=== PATIENT | female | born 1970 | race Caucasian/White ===

== ENCOUNTER 2018-04-29 12:25 | Inpatient (IN) | payer BC ==
[~2018-04-29] VITALS: Ht 170.2 cm; Wt 99.1 kg
[2018-04-29 12:33] VITALS: Ht 170.2 cm; Wt 99.1 kg
[2018-04-29 13:14] LABS: BASOPHIL % 0.6 % (0-2); PLATELET COUNT 215 x10^3mcL (130-400); RED CELL DISTRIBUTION WIDTH 14.2 % (11.5-14.5)
[2018-04-29 13:31] LABS: CALCIUM 9.9 mg/dL (8.5-10.1); CARBON DIOXIDE 28.1 mmol/L (21-32); CHLORIDE SERUM 104 mmol/L (98-107); CREATININE SERUM 0.9 mg/dL (0.6-1.0); GFR1 > 60 mL/min; GLUCOSE SERUM 146 mg/dL (74-106); POTASSIUM SERUM 3.7 mmol/L (3.5-5.1); SODIUM SERUM 141 mmol/L (136-145)
[2018-04-29] MEDS ORDERED: VENLAFAXINE HYD75 MG PO (13:45)
[2018-04-29] MEDS ORDERED: SYNTHROID0.05 MG PO (13:46)
[2018-04-29] MEDS ORDERED: NORCO1 TA2 PO (13:46)
[2018-04-29] MEDS ORDERED: TRAMADOL HCL50 MG PO (13:47)
[2018-04-29 15:20] VITALS: BP 112/77
[2018-04-29 15:42] LABS: MAGNESIUM 1.9 mg/dL (1.8-2.4); PHOSPHOROUS 3.5 mg/dL (2.5-4.9)
[2018-04-29 15:44] LABS: CHOLESTEROL/HDL RATIO 3.5
[2018-04-29 15:48] LABS: T3 TOTAL 1.12 ng/mL
[2018-04-29 15:49] LABS: FREE T4 0.84 ng/dL (0.76-1.46); FREE THYROXINE INDEX 2.4 ug/dL (1.4-4.5); T4(THYROXINE) 7.7 ug/dL (4.7-13.3)
[2018-04-29 16:27] LABS: UA SPECIFIC GRAVITY <=1.005 (1.005-1.035); microscopic required? YES; urine erythrocyte NEGATIVE (NEGATIVE)
[2018-04-29 16:38] LABS: AMPHETAMINE QUAL UR NONE DETECTED (See below)
[2018-04-29 20:34] VITALS: BP 120/83
[2018-04-30 05:40] VITALS: BP 107/71
[2018-04-30] MEDS ORDERED: LEVOTHYROXIN0.088 M1 PO (06:20)
[2018-04-30] MEDS ORDERED: LEVOTHYROXINE PO (06:24)
[2018-04-30 06:47] LABS: BASOPHIL % 0.5 % (0-2); PLATELET COUNT 188 x10^3mcL (130-400)
[2018-04-30 07:02] LABS: RED CELL DISTRIBUTION WIDTH 14.7 % (11.5-14.5)
[2018-04-30 08:07] LABS: CALCIUM 9.8 mg/dL (8.5-10.1); CARBON DIOXIDE 29.8 mmol/L (21-32); CHLORIDE SERUM 107 mmol/L (98-107); CREATININE SERUM 0.9 mg/dL (0.6-1.0); GFR1 > 60 mL/min; GLUCOSE SERUM 92 mg/dL (74-106); POTASSIUM SERUM 4.5 mmol/L (3.5-5.1); SODIUM SERUM 144 mmol/L (136-145)
[2018-04-30 09:40] VITALS: BP 113/76
[2018-04-30 13:34] VITALS: BP 106/79
[2018-04-30 13:35] VITALS: BP 109/68
== END 2018-04-30 16:35 | disposition home or self-care (01) | DRG 563 ==
LOC: ED 12:25 → DU 13:59
PROVIDERS: Emergency Medicine; Internal Medicine
DX: S29.011A Strain of muscle and tendon of front wall of thorax, initial encounter (principal); F32.9 Major depressive disorder, single episode, unspecified; F41.9 Anxiety disorder, unspecified; G89.29 Other chronic pain; M54.9 Dorsalgia, unspecified; E03.9 Hypothyroidism, unspecified; Z90.711 Acquired absence of uterus with remaining cervical stump; X58.XXXA Exposure to other specified factors, initial encounter; Y93.89 Activity, other specified; Y92.89 Other specified places as the place of occurrence of the external cause; Y99.8 Other external cause status
CPT/HCPCS: 83880; 84439; J0696; J1885; J2405; J3010; J7030; Q0092

== ENCOUNTER 2019-01-03 13:38 | Emergency (ER) | payer BC, OTHER ==
[~2019-01-03] VITALS: Ht 170.2 cm; Wt 101.2 kg
[~2019-01-03 13:38] MED LIST: LEVOTHYROXIN0.088 M1 PO; LEVOTHYROXINE PO; NORCO1 TA2 PO; SYNTHROID0.05 MG PO; TRAMADOL HCL50 MG PO; VENLAFAXINE HYD75 MG PO
[2019-01-03 14:03] VITALS: Ht 170.2 cm; Wt 101.2 kg
[2019-01-03 15:32] LABS: microscopic required? YES; urine erythrocyte TRACE (NEGATIVE)
[2019-01-03 16:40] VITALS: BP 124/82
== END 2019-01-03 16:40 | disposition home or self-care (01) ==
LOC: ED 13:38
PROVIDERS: Emergency Medicine
DX: G89.29 Other chronic pain (principal); M54.9 Dorsalgia, unspecified; R10.31 Right lower quadrant pain; Z90.710 Acquired absence of both cervix and uterus; Z87.442 Personal history of urinary calculi; Z90.49 Acquired absence of other specified parts of digestive tract

== ENCOUNTER 2019-06-06 10:23 | Emergency (ER) | payer BC, OTHER ==
[~2019-06-06] VITALS: Ht 170.2 cm; Wt 126.6 kg
[2019-06-06 10:28] VITALS: Ht 170.2 cm; Wt 126.6 kg
[2019-06-06 11:01] LABS: CALCIUM 9.6 mg/dL (8.5-10.1); CARBON DIOXIDE 25.1 mmol/L (21-32); CHLORIDE SERUM 105 mmol/L (98-107); CREATININE SERUM 0.8 mg/dL (0.6-1.0); GFR1 > 60 mL/min; GLUCOSE SERUM 125 mg/dL (74-106); POTASSIUM SERUM 3.8 mmol/L (3.5-5.1); SODIUM SERUM 142 mmol/L (136-145)
[2019-06-06 11:03] LABS: BASOPHIL % 0.7 % (0-2); PLATELET COUNT 190 x10^3mcL (130-400); RED CELL DISTRIBUTION WIDTH 14.3 % (11.5-14.5)
[2019-06-06 11:06] LABS: ALBUMIN 3.8 g/dL (3.4-5.0); ALKALINE PHOSPHATASE 92 U/L (46-116); ALT/SGPT 91 U/L (14-59); AST/SGOT 51 U/L (15-37); BILIRUBIN TOTAL 0.9 mg/dL (0.20-1.00); TOTAL PROTEIN, SERUM 7.2 g/dL (6.4-8.2)
[2019-06-06 15:21] VITALS: BP 142/92
== END 2019-06-06 15:21 | disposition home or self-care (01) ==
LOC: ED 10:23
DX: R10.9 Unspecified abdominal pain (principal); E03.9 Hypothyroidism, unspecified; F41.9 Anxiety disorder, unspecified; F32.9 Major depressive disorder, single episode, unspecified; Z87.442 Personal history of urinary calculi; Z90.710 Acquired absence of both cervix and uterus; Z98.890 Other specified postprocedural states
CPT/HCPCS: J1885; J7030